=== PATIENT | female | born 1960 | race Caucasian/White ===

== ENCOUNTER 2024-01-14 19:28 | Inpatient (IN) | payer SELFPAY ==
[2024-01-14] VITALS (8 sets, daily range): BP systolic 94–123; BP diastolic 52–92
[2024-01-14 14:41] LABS: % Basophils 0.6 % (0-2); % Immature Granulocytes 0.3 % (0-0.5); % Lymphocytes 16.3 % (20.5-51.1); % Monocytes 8.8 % (1.7-9.3); Absolute Eosinophils 0.1 10^3/uL (0-0.7); Absolute Lymphocytes 1.2 10^3/uL (1.2-3.4); Absolute Monocytes 0.6 10^3/uL (0.1-0.6); Absolute Neutrophils 5.2 10^3/uL (1.4-6.5); Hematocrit 43.1 % (37.0-47.0); Hemoglobin 14.6 g/dL (12.0-16.0); Mean Corp Hgb Conc. 33.9 g/dL (33.0-37.0); Mean Corpuscular Volume 94.5 fL (81.0-99.0); Mean Platelet Volume 8.8 fL (7.4-10.4); Nucleated Red Blood Cells % 0 %; Platelet Count 279 10^3/uL (130-400); Red Blood Cell Count 4.56 10^6/uL (4.20-5.40); Red Cell Dist. Width 13.9 % (11.5-14.5); White Blood Cell Count 7.1 10^3/uL (4.8-10.8)
[2024-01-14 14:53] LABS: ALT (SGPT) 20 U/L (0-35); AST (SGOT) 28 U/L (14-36); Albumin 4.3 g/dl (3.5-5.0); Alkaline Phosphatase 72 U/L (38-126); Blood Urea Nitrogen 16 mg/dl (7-17); Calcium 9.4 mg/dl (8.4-10.2); Carbon Dioxide 30 mmol/L (22-30); Chloride 102 mmol/L (98-107); Glucose 160 mg/dl (70-99); Lipase 55 U/L (23-300); Potassium 3.8 mmol/L (3.5-5.1); Sodium 136 mmol/L (135-145); Total Bilirubin 0.6 mg/dl (0.2-1.3); Total Protein 7.1 g/dl (6.3-8.2); eGFR > 60.00
[2024-01-14 15:03] LABS: Troponin I 0.194 ng/ml
--- NOTE | 2024-01-14 16:00 | ED.GENMED ---
History of Present Illness
<Tal Garay DO - Last Filed: 01/14/24 16:07>
General
Chief Complaint: Abdominal Pain
Time Seen by Provider: 01/14/24 15:26
<SUNITA Garcia - Last Filed: 01/14/24 17:31>
General
Source: patient
Exam Limitations: none
Nursing documentation reviewed up to this point in time: agreed with
Travel History
Have you had any contact with someone who has COVID-19?: No
Do you have any symptoms of coronavirus? Fever > 100 degrees, chills, cough, shortness of breath, sore throat, loss of taste or smell, muscle aches, or headache?: No
History of Present Illness
History of Present Illness:
Patient is a 63-year-old female who presents to the ER for evaluation of chest pain. Patient reports on Friday afternoon, 2 days ago she had pain in her chest and in her back, bilateral shoulder blade region. She was sitting at that time. She is
not exactly sure how long it lasted. Yesterday she had intermittent discomfort and last night around 7:30 PM while sitting at a desk she passed out. She does not feel herself. She currently denies any chest pain or shortness of breath. She never
had any associated symptoms. She went to urgent care was sent here. She is under a lot of stress. She is from [place] and has been flying back and forth because of illness of father.
She has no cardiac history she does not smoke. She does have history of breast cancer with bilateral mastectomy/chemo. She has not been on medication for 1 year. He was taken off medication because of a low ejection fraction on echocardiogram but
reports that has since been repeated and is normal. All care in [place].
Review of Systems
<SUNITA Garcia - Last Filed: 01/14/24 17:31>
Review of Systems
Allergies reviewed?: Yes
All Other Systems: ROS reviewed and negative except as documented in HPI and ROS
Constitutional: Reports no symptoms; Denies fever, fatigue or chills
Respiratory: Reports no symptoms; Denies cough or trouble breathing
Cardiac: Reports chest pain and syncope; Denies diaphoresis or palpitations
ABD/GI: Reports no symptoms
: Reports no symptoms
Skin: Reports no symptoms
Neurological: Reports no symptoms
Hematologic/Lymphatic: Reports no symptoms
Psychiatric: Reports no symptoms
Phy Exam
<SPENCER GarciaNP - Last Filed: 01/14/24 17:31>
General Physical Exam
General Presentation: no apparent distress
General age: appears stated age
General Skin: warm and dry
General Habitus: normal
General Mental: alert
Cardiovascular Exam
Cardiovascular Exam: regular rate/rhythm, no murmur and normal peripheral pulses
Pulmonary Exam
Pulmonary Exam: lungs clear and no respiratory distress
Neurological Exam
Neurological Exam: alert and oriented x3
Musculoskeletal Exam
Musculoskeletal Exam: full ROM
Skin Exam
Skin Exam: normal color and warm/dry
Psychiatric Exam
Psychiatric Exam: normal mood/affect
Course
<Tal Garay DO - Last Filed: 01/14/24 16:07>
Orders/Labs/Results
Orders:
Orders
01/14/24 14:18
EKG [Electrocardiogram (*1)] Urgent
Reason for Study: Chest Pain
01/14/24 14:19
EKG- Treatment ONCE
01/14/24 14:25
Complete Blood Count/With Diff Urgent
Comprehensive Metabolic Panel Urgent
Lipase Urgent
Troponin I Urgent
01/14/24 15:56
Aspirin Chewable [Low Strength Aspirin] 324 mg PO NOW STA
Heparin 4,000 units IV NOW STA
01/14/24 15:[address] Non Medication Order As Directed
Physician Order: PTT 6 hours after initial start of Heparin infusion
Above order entered?: Yes
01/14/24 16:00
PTT Urgent
Comment: Obtain baseline before beginning heparin infusion if not already collected
Heparin 32882 Units/250 ml 25,000 units in 250 ml IV PER PROTOCOL
Weight to be used for heparin protocol in kilograms (kg):: 68.4
Protocol:: Cardiac Tx/Acute Coronary
PTT Goal Range to be used:: PTT 73 to 111 seconds
Order type:: Initial
INITIAL Infusion Dose (UNITS/KG/hr) & then follow protocol:: 15 units/kg/hr
Infusion Dose in UNITS/hr & then follow protocol (UNITS/hr):: 1,050
INFUSION RATE in mL/hr & then follow protocol (mL/hr):: 10.5
PTT less than or equal to 64 seconds:: Increase rate by 200 units/hr (+ 2 mL/hr)
PTT 64.1 to 72.9 seconds:: Increase rate by 100 units/hr (+ 1 mL/hr)
PTT 73 to 111 seconds:: Target Range. No change in rate.
PTT 111.1 to 130.9 seconds:: Decrease rate by 100 units/hr (- 1 mL/hr)
PTT 131 to 199.9 seconds:: HOLD for 1 hr. Then decrease rate by 200 units/hr (- 2 mL/hr)
PTT greater than or equal to 200 seconds:: HOLD for 2 hrs & Notify Provider. Then decrease by 200 units/hr (-
2 mL/hr)
Lab follow-up:: Each change, PTT q6h until 2 consecutive are therapeutic. Then PTT
daily.
01/14/24 16:29
Chest [CR Chest - 2 Views ] Urgent
Comment:
Reason For Exam: cp
01/14/24 17:22
Troponin I Urgent
01/14/24 17:30
Troponin I Q6H
01/14/24 18:00
Atorvastatin [Lipitor] 80 mg PO QPM
Metoprolol [Lopressor] 25 mg PO Q6
01/14/24 22:19
PTT Routine
01/14/24 23:30
Troponin I Q6H
01/15/24 06:00
Echo 2D MMode Color/Doppler IN AM
Reason for Study: chest pain, elevated Troponin, h/o NICM from chemo
Cardiology Consult: Akanksha Corral
Electrocardiogram (*1) IN AM
Reason for Study: Chest Pain
Cardiology Consult: Akanksha Corral
Cardiovascular Evaluation IN AM
Abnormal Lab Results
01/14/24
14:25
MCH 32.0 H pg
(27.0-31.0)
Lymphocytes % 16.3 L %
(20.5-51.1)
Glucose 160 H mg/dl
(70-99)
Troponin I 0.194 H* ng/ml
01/14/24 14:25
01/14/24 14:25
Vital Signs
Initial and Last Documented VS:
Initial Vital Signs
Temp Pulse Resp BP Pulse Ox
98.5 F 86 18 110/73 98
01/14/24 14:15 01/14/24 14:15 01/14/24 14:15 01/14/24 14:15 01/14/24 14:15
Last Documented Vital Signs
Temp Pulse Resp BP Pulse Ox
98.5 F 78 16 115/92 99
01/14/24 14:15 01/14/24 17:15 01/14/24 17:15 01/14/24 17:03 01/14/24 17:15
<SUNITA Garcia - Last Filed: 01/14/24 17:31>
Orders/Labs/Results
Orders:
Orders
01/14/24 14:18
EKG [Electrocardiogram (*1)] Urgent
Reason for Study: Chest Pain
01/14/24 14:19
EKG- Treatment ONCE
01/14/24 14:25
Complete Blood Count/With Diff Urgent
Comprehensive Metabolic Panel Urgent
Lipase Urgent
Troponin I Urgent
01/14/24 15:56
Aspirin Chewable [Low Strength Aspirin] 324 mg PO NOW STA
Heparin 4,000 units IV NOW STA
01/14/24 15:[address] Non Medication Order As Directed
Physician Order: PTT 6 hours after initial start of Heparin infusion
Above order entered?: Yes
01/14/24 16:00
PTT Urgent
Comment: Obtain baseline before beginning heparin infusion if not already collected
Heparin 34195 Units/250 ml 25,000 units in 250 ml IV PER PROTOCOL
Weight to be used for heparin protocol in kilograms (kg):: 68.4
Protocol:: Cardiac Tx/Acute Coronary
PTT Goal Range to be used:: PTT 73 to 111 seconds
Order type:: Initial
INITIAL Infusion Dose (UNITS/KG/hr) & then follow protocol:: 15 units/kg/hr
Infusion Dose in UNITS/hr & then follow protocol (UNITS/hr):: 1,050
INFUSION RATE in mL/hr & then follow protocol (mL/hr):: 10.5
PTT less than or equal to 64 seconds:: Increase rate by 200 units/hr (+ 2 mL/hr)
PTT 64.1 to 72.9 seconds:: Increase rate by 100 units/hr (+ 1 mL/hr)
PTT 73 to 111 seconds:: Target Range. No change in rate.
PTT 111.1 to 130.9 seconds:: Decrease rate by 100 units/hr (- 1 mL/hr)
PTT 131 to 199.9 seconds:: HOLD for 1 hr. Then decrease rate by 200 units/hr (- 2 mL/hr)
PTT greater than or equal to 200 seconds:: HOLD for 2 hrs & Notify Provider. Then decrease by 200 units/hr (-
2 mL/hr)
Lab follow-up:: Each change, PTT q6h until 2 consecutive are therapeutic. Then PTT
daily.
01/14/24 16:29
Chest [CR Chest - 2 Views ] Urgent
Comment:
Reason For Exam: cp
01/14/24 17:22
Troponin I Urgent
01/14/24 17:30
Troponin I Q6H
01/14/24 18:00
Atorvastatin [Lipitor] 80 mg PO QPM
Metoprolol [Lopressor] 25 mg PO Q6
01/14/24 22:19
PTT Routine
01/14/24 23:30
Troponin I Q6H
01/15/24 06:00
Echo 2D MMode Color/Doppler IN AM
Reason for Study: chest pain, elevated Troponin, h/o NICM from chemo
Cardiology Consult: Akanksha Corral
Electrocardiogram (*1) IN AM
Reason for Study: Chest Pain
Cardiology Consult: Akanksha Corral
Cardiovascular Evaluation IN AM
Abnormal Lab Results
01/14/24
14:25
MCH 32.0 H pg
(27.0-31.0)
Lymphocytes % 16.3 L %
(20.5-51.1)
Glucose 160 H mg/dl
(70-99)
Troponin I 0.194 H* ng/ml
01/14/24 14:25
01/14/24 14:25
Vital Signs
Initial and Last Documented VS:
Initial Vital Signs
Temp Pulse Resp BP Pulse Ox
98.5 F 86 18 110/73 98
01/14/24 14:15 01/14/24 14:15 01/14/24 14:15 01/14/24 14:15 01/14/24 14:15
Last Documented Vital Signs
Temp Pulse Resp BP Pulse Ox
98.5 F 78 16 115/92 99
01/14/24 14:15 01/14/24 17:15 01/14/24 17:15 01/14/24 17:03 01/14/24 17:15
<SUNITA Garcia - Last Filed: 01/14/24 17:31>
MDM/Problems Addressed
Differential Diagnosis Includes:
not limited to: CAD/USA
MDM/Problems Addressed:
Patient as document is a 63-year-old female history of breast cancer presented with intermittent chest pain. Pain started 2 days ago anterior chest and pain between both shoulder blades. She did have a syncopal episode yesterday. Patient
presented awake alert no acute distress asymptomatic. She has no documented history cardiac disease. Her EKG is abnormal and her troponin is elevated at 0.194. Patient was given 4 baby aspirin here in the ER and started on heparin. Case
discussed with ED physician who evaluated patient. Case discussed with cardiology Dr. Yoon who will evaluate patient.
Patient stable no acute distress no complaint of shortness of breath. As documented she is under a lot of stress with her ill father. She does live in [place] and has been flying back and forth recently denies any lower extremity swelling or prior
history of DVT PE, nontachycardic nontachypneic.
1730: Patient seen by cardiology who recommended admission to hospitalist service will plan for echo tomorrow morning.
<SUNITA Garcia - Last Filed: 01/14/24 17:31>
*Radiology
Radiology exam reviewed: preliminary read by ED provider
*Pulse Oximetry
Patient hypoxic: no
*EKG
Interpretation: abnormal
Comparison EKG: no comparison EKG present
Heart Rate: 79
Rate: normal
Rhythm: sinus
Ischemia: T-wave inversion
*Critical Care Note
Total Time (30-74mins, 75-104mins- exclusive of procedures): Not Applicable
<SUNITA Garcia - Last Filed: 01/14/24 17:31>
Patient Management
Discussion with other providers: S Iron Worker (Cardiology Dr. Osorio)
ED Attending Note
<Tal Garay DO - Last Filed: 01/14/24 16:07>
ED Attending Note
Patient seen and examined by attending physician: Yes
I performed the substantive portion of visit, reviewed & personally made and approve the management plan that is documented in note by myself or KAREN.: Yes
I performed a history and physical exam of patient and discussed management with resident, I reviewed resident's note and agree with documented findings and plan of care.: Yes
ED Attending Note:
I evaluated the patient at bedside. She is comfortable. Denies any chest pain. Earlier in the week she had intrascapular stabbing pain and chest pain but no pain today. She has an abnormal EKG with lateral abnormality and troponin of 0.194.
Will plan heparin/aspirin. Will hold off on nitroglycerin as she has no pain.
<SUNITA Garcia - Last Filed: 01/14/24 17:31>
-
Portions of this chart may have been created with voice recognition software.� Occasional wrong word or��sound alike� substitutions may have occurred due to the inherent limitations of voice recognition software.
Discharge Plan
Departure
Patient Disposition: Admit
Date of Disposition: 01/14/24
Time of Disposition: 17:27
Admit to doctor: hospitalist
Presentation/result/management discussed w/ accepting MD/DO: Hospitalist
Patient with high blood pressure during this ER visit?: No
Condition: Fair
Covid-19: Not Applicable
Discharge Problem:
Chest pain
Prescriptions:
No Action
anastrozole 1 mg Tablet
1 mg PO DAILY
Patient Comments:
no pharamcy or ecw records
alprazolam [Xanax] 0.5 mg Tablet
0.5 mg PO DAILYPRN PRN (Reason: anixety)
Patient Comments:
no pdmp records
Referrals:
UNKNOWN - PT DOES,NOT KNOW [Family Provider] -
Interventions
Interventions:
*Risk Screen - Suicide Last Done: 01/14/24 14:15
*General Assessment Last Done: 01/14/24 14:15
*Neglect/Abuse Screening Last Done: 01/14/24 14:15
ED- Fall Risk Assessment Last Done: 01/14/24 15:39
*ED COVID-19 Vaccine History Last Done: 01/14/24 14:15
LU-Eembqn-Xspyuoxskx Assessment Last Done: 01/14/24 15:38
Discharge Date and Time
Print Language: DUTCH
[2024-01-14] MEDS: LOW STRENGTH ASPIRIN 324 MG PO (16:02)
[2024-01-14] MEDS: HEPARIN 4000 UNITS IV (16:18)
[2024-01-14] MEDS: HEPARIN 25000 UNITS/250 ML IV (16:19)
--- NOTE | 2024-01-14 16:21 | CON.CAR ---
Addendum entered and electronically signed by Akanksha Corral MD 01/14/24 17:30:
I saw and examined the patient.
The Pharmacy Care Coordinator's note was reviewed and I agree with the note.
Comment: Briefly, Ms Gibbs is a 63-year-old female with past medical history of breast cancer status post bilateral mastectomy as well as chemo and radiation therapy including Adriamycin with transient nonischemic cardiomyopathy at the end of her
treatment in 2021 with recovered LVEF per patient with records in [place] who presents after 2 days of episodic chest and abdominal discomfort, somewhat vague in nature. The first episode was on Friday when the symptoms lasted about an hour and
then she had a recurrent episode after a emotional conversation with her brother in regards to her father who may need hospice care yesterday morning, again lasting for about an hour and then resolving without any interventions. She had an episode
yesterday evening while she was working at her desk with prodromal symptoms of nausea, cold sweats followed by episode of LOC which was transient lasting less than a minute. Though her symptoms have not reoccurred since then, specifically with no
recurrent chest discomfort or abdominal pain since yesterday morning given these episodes over the last couple of days she was prompted by her to come to the emergency department to have an evaluation. No history of hypertension,
hyperlipidemia. Family history of coronary artery disease in her dad in his late 60s needing a stent and subsequently a defibrillator for unclear reasons. No history of smoking tobacco.
Vital signs and lab work reviewed. ECG with sinus rhythm, nonspecific ST-T wave changes. On exam patient is well-appearing, in no acute distress, alert and oriented x 3, regular rate, normal S1 and S2, no murmurs, rubs or gallops, abdomen is soft,
nontender, nondistended with active bowel sounds, lungs are clear to auscultation bilaterally. Warm extremities without significant edema
Recommendations:
1. Differential for mild troponin elevation includes acute coronary syndrome versus pulmonary embolus given prior history of breast cancer and recent flight from [place] versus Takotsubo cardiomyopathy which would be a diagnosis of exclusion.
2. Patient is currently chest pain-free and after discussion, she is certainly not interested in an urgent heart catheterization or invasive procedures for now. We discussed trending troponins and checking an echocardiogram with low threshold for
a heart catheterization given she is a female with no other clear explanation for her troponin elevation.
3. Low suspicion for a PE given no lower extremity edema, no shortness of breath, no hypoxia, no tachycardia therefore agree with holding off on a PE evaluation for now.
4. For now we will treat for presumed ACS with daily baby aspirin, high intensity statin, low-dose beta-blane as well as IV heparin drip until we get further data by trending troponins and checking an echocardiogram
5. Monitor on telemetry overnight.
5. I encouraged the patient to let us know if any of her symptoms are recurrent.
Akanksha Corral MD, [facility], [facility]
Original Note:
Consultation
Consultation Request
Date/Time Consultation Requested: 01/14/24
Date/Time Consultation Performed: 01/14/24
Requesting Provider: Suim DORSEY
Performing Provider: Janiya Dugan PA-C for Dr. Corral
Reason for Consultation: CP
Medical History
-
Chief Complaint: CP
History of Present Illness:
Patient came to [facility] today with chest pain episodes on Friday and Friday and cardiology is consulted for elevated Troponin. Patient resides in [place] and is visiting her father who is very ill with glioblastoma. She has a PMH of breast cancer s/p
B/L mastectomy and chemotherapy including Adriamycin, on anastrozole. She had NICM towards the end of her treatment in 2021 and was recommended CM meds, but EF improved on a follow up echo and meds were never restarted. Echo within the last year
showed a normal EF. Patient flew into [place] on Friday and in the evening she had an episode of chest pain, it was pain at rest and associated with emotional distress. The pain lasted an hour and resolved without specific intervention. Pain was between
her shoulders and to her left ACW. She had never had a pain like that before. She had another episode of pain that was identical during an emotional conversation with her brother yesterday morning. No recurrence of pain since Friday.
Patient then had an episode of abdominal pain and had an episode of syncope while seated and participating in a video conference call with her about a work issue. She awoke and felt like she had urinary incontinence, but no vomiting or fecal
incontinence. She has passed in the past as well, once with an IUD insertion and another time after colonoscopy. She came to [facility] today to get checked out, no new issues today. No leg pain or swelling. No SOB, tachypnea or tachycardia. No h/o DVT/PE
PMH:
Breast cancer
lumpectomy and radiation with resulting pneumonitis in 2009
recurrence in the other breast with 3 masses and 2 different types of cancer, treated with 'upper mattaponi' chemotherapy which includes Adriamycin, EF dropped and then recovered when therapy stopped, never treated with CM meds, 2021
Improved NICM felt to be secondary to chemotherapy with subsequent recovery in EF 2021
Anxiety
Elevated blood glucose
h/o COVID 11/2023
Past Medical History
Past Medical History: Other (in HPI)
Past Surgical History: Gynecological (B/L mastectomy for breast cancer)
Social History
Tobacco: Former Smoker (smoked age [age])
Alcohol: Occasional (1-2 drinks three times a week)
Drug: None
Personal:
Living: With Family
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
Family History
Family History: Other (father with MIs starting in his late 60s and now with glioblastoma, mother with OCD)
Allergies / Home Medications
Allergy/AdvReac Type Severity Reaction Status Date / Time
codeine Allergy Nausea Verified 01/14/24 14:14
�Medication �Instructions �Recorded �Confirmed �Type
alprazolam 0.5 mg tablet (Xanax) 0.5 mg PO DAILYPRN PRN anixety 01/14/24 01/14/24 History
anastrozole 1 mg tablet 1 mg PO DAILY 01/14/24 01/14/24 History
Review of Systems
-
History Source: Patient
All other systems: Negative unless noted
Physical Exam
Vital Signs
Temp Pulse Resp BP Pulse Ox
98.5 F 87 15 110/73 98
01/14/24 14:15 01/14/24 15:38 01/14/24 15:38 01/14/24 14:15 01/14/24 15:38
GEN: NAD. AAOx3
HEENT: EOMI, MMM
LUNGS: CTA B/L, no wheezes or rales
CV: Reg, S1/S2, no murmur
ABD: soft, BS+, NT, ND
EXT: No clubbing, cyanosis, lesions or edema B/L
NEURO: Gross non-focal
SKIN: Warm, dry and pink. No rash
Lab Results
01/14/24 14:25
01/14/24 14:25
Troponin I 0.194 ng/ml H* 01/14/24 14:25
Impression / Plan
-
PCP; In [place]
Primary Vice President Sales And Marketing: None
Assessment:
Presentation with CP
Elevated troponin
Breast cancer
lumpectomy and radiation with resulting pneumonitis in 2009
recurrence in the other breast with 3 masses and 2 different types of cancer, treated with 'upper mattaponi' chemotherapy which includes Adriamycin, EF dropped and then recovered when therapy stopped, never treated with meds, 2021
Improved NICM felt to be secondary to chemotherapy with subsequent recovery in EF 2021
Anxiety
Elevated blood glucose
h/o COVID 11/2023
Plan:
-Patient came to [facility] today with chest pain episodes on Friday and Friday and cardiology is consulted for elevated Troponin. Patient resides in [place] and is visiting her father who is very ill with glioblastoma. She has a PMH of breast cancer s/p
B/L mastectomy and chemotherapy including Adriamycin, on anastrozole. She had NICM towards the end of her treatment in 2021 and was recommended CM meds, but EF improved on a follow up echo and meds were never restarted. Echo within the last year
showed a normal EF. Patient flew into [place] on Friday and in the evening she had an episode of chest pain, it was pain at rest and associated with emotional distress. The pain lasted an hour and resolved without specific intervention. Pain was between
her shoulders and to her left ACW. She had never had a pain like that before. She had another episode of pain that was identical during an emotional conversation with her brother yesterday morning. No recurrence of pain since Friday.
Patient then had an episode of abdominal pain and had an episode of syncope while seated and participating in a video conference call with her about a work issue. She awoke and felt like she had urinary incontinence, but no vomiting or fecal
incontinence. She has passed in the past as well, once with an IUD insertion and another time after colonoscopy. She came to [facility] today to get checked out, no new issues today. No leg pain or swelling. No SOB, tachypnea or tachycardia. No h/o DVT/PE
-Initial Troponin is 0.194. ECG reviewed by me with anterolateral T wave changes, but no ST elevation.
-Patient with chest pain Friday and Friday, but no chest pain in 24 hours. Talked with patient about options of Heparin gtt overnight and then echo +/- cath in AM vs more urgent cath if she has recurrent pain. Patient is agreeable to admission with
Heparin gtt overnight.
-Check echo in AM
-Cont Heparin gtt
-ASA 324 mg given in ER, cont 81 mg daily starting tomorrow
-ECG in AM
-Lopressor 25 mg PO q 6 hours
-Check CVE and start atorvastatin 80 mg daily
Data Reviewed
-
EKG: Tracing Personally Visualized and interpreted
Labs: Labs Reviewed by me
Old Records: Requested
[2024-01-14 16:25] LABS: APTT 27.7 Sec (23.4-35.0)
--- NOTE | 2024-01-14 18:02 | W.PN.UPDATE ---
Update Note
Progress Note Update
This note serves as an addendum to the H&P done by Vanessa on 01/14/2024.
I saw and examined the patient.
The DOWNSTAIRS MAID or PA's note was reviewed and I agree with the note.
Comment:
Patient is 63 years female with history of breast cancer, transient ischemic cardiomyopathy, came into the hospital with chest pain and abdominal discomfort. She started having symptoms since Friday and has come on and off some of which are not
exertional in nature and some associated with nausea and generalized malaise. She had episode of transient loss of consciousness as well. Patient currently chest pain-free. In the ED,. On 0, EKG normal sinus rhythm at [address]-T
changes abnormalities. Cardiology consulted. She was referred to hospitalist service for evaluation.
Physical exam:
General: Acutely ill
HEENT: Normocephalic, Atraumatic and Moist Mucous Membranes
Respiratory: Clear to Auscultation; Negative Wheezes, Rales or Rhonchi
Cardiac: Regular Rhythm and S1/S2
GI: Soft, Nontender and Nondistended
Musculoskeletal: No Clubbing, No Cyanosis and No Edema
Neuro: Awake, Alert and Oriented
Psych: Anxious
A/P:
Chest pain and elevated troponin--> heparin drip, aspirin beta-blockers and statin, plan for echocardiogram, cardiology consult. Cardiac catheterization if worsened symptoms or cardiac enzymes significantly elevated on trend. Would check D-Dimer
and if elevated CTA. Will give further recommendations based on clinical course.
[2024-01-14 18:17] LABS: Troponin I 0.165 ng/ml
--- NOTE | 2024-01-14 18:24 | HPS.HSE ---
Family Physician
-
Family Physician: NOT KNOW UNKNOWN - PT DOES
Chief Complaint
-
Chest Pain
History of Present Illness
Patient is a 63 y/o female past medical history of breast cancer, and nonischemic cardiomyopathy with recovered EF who presents with episodic chest pain. Patient reports she had an episode of chest pain on Friday evening. She notes pain occurred
at rest described between her shoulders and left anterior chest wall. Yesterday morning she had an episode of identical chest pain. Both o f the episodes of chest pain were associated with emotional distress as her father is quite ill with
glioblastoma. Patient then had an episode of epigastric abdominal yesterday afternoon which was associated with a syncopal episode while seated during a call with her while preparing for a client conference call. After the syncopal episode
she reports a chest discomfort that lasted the rest of the night. This morning patient felt lightheaded which prompted her to come to the emergency department for evaluation. Patient denies any chest or abdominal pain at the present time.
Medical History
Past Medical History
Past Medical History: Reports Other
Additional Past Medical History:
Breast Cancer
Transient Nonischemic Cardiomyopathy
Past Surgical History: Reports Other
Additional Past Surgical History:
Bilateral Mastectomy
Hysterectomy
Appendectomy
Social History
Tobacco: Non-smoker
Alcohol: Occasional (Few glasses of wine per week)
Family History
Family History: Other (Father: CAD with stent in 60s)
Allergies / Home Medications
Allergies reflects when Allergies were last updated in [employer] [employer].
Home Medications with original date entered in [employer] [employer]
Allergy/Medication List:
Allergies
Allergy/AdvReac Type Severity Reaction Status Date / Time
codeine Allergy Nausea Verified 01/14/24 14:14
Home Medications
alprazolam 0.5 mg tablet (Xanax) 0.5 mg PO DAILYPRN PRN anixety 01/14/24
anastrozole 1 mg tablet 1 mg PO DAILY 01/14/24
Review of Systems
-
A 12 point ROS was completed and negative except as noted: Yes
Constitutional: Denies Fever or Chills
Respiratory: Denies Cough or Trouble Breathing
Cardiac: Reports See HPI
Physical Exam
Vital Signs
Vital Signs
Temp Pulse Resp BP Pulse Ox
98.5 F 78 16 115/92 99
01/14/24 14:15 01/14/24 17:15 01/14/24 17:15 01/14/24 17:03 01/14/24 17:15
Physical Exam
General: Comfortable and Conversant
HEENT: Anicteric and Moist mucous membranes
Respiratory: Clear and Non Labored Respirations
Cardiac: S1/S2 and Regular Rhythm
GI: Soft and Non Tender
Rectal: Deferred by Provider
Musculoskeletal: No Clubbing, No Cyanosis and No Edema
Skin: Warm and Dry
Neuro: Awake, Alert, Oriented and Nonfocal/grossly intact
Psych: Calm
Laboratory Results
-
01/14/24 14:25
01/14/24 14:25
Laboratory Results
APTT 27.7 Sec (23.4-35.0) 01/14/24 16:00
Total Bilirubin 0.6 mg/dl (0.2-1.3) 01/14/24 14:25
AST 28 U/L (14-36) 01/14/24 14:25
ALT 20 U/L (0-35) 01/14/24 14:25
Alkaline Phosphatase 72 U/L (38-126) 01/14/24 14:25
Troponin I 0.165 ng/ml H* 01/14/24 17:44
Lipase 55 U/L (23-300) 01/14/24 14:25
Data Reviewed
-
Lab Data: Labs Reviewed by me
Impression/Plan
-
Chest Pain with Mildly Elevated Troponin, possibly acute coronary syndrome vs pulmonary embolism
-Consult Cardiology
-Check D-Dimer, if elevated check Chest CT for PE
-Continue to trend troponin
-Continue heparin drip
-Start low dose aspirin, high intensity statin with atorvastatin, and low-dose beta blane with Lopressor - As outlined by Cardiology
-Check Echo
Hx Breast CA s/p Bilateral Mastectomy, Chemotherapy and Radiation
-Continue Anastrozole
DVT proph: Heparin Drip
Code Status: Full Code
[2024-01-14] MEDS: LIPITOR 80 MG PO (20:11)
[2024-01-14] MEDS: LOPRESSOR 25 MG PO (20:11)
[2024-01-14 20:22] LABS: D-Dimer 0.47 ug/mlFEU (0.00-0.50)
[2024-01-14 22:52] LABS: APTT 66.4 Sec (23.4-35.0)
[2024-01-15] VITALS (19 sets, daily range): BP systolic 82–132; BP diastolic 56–87
[2024-01-15] MEDS: LOPRESSOR 25 MG PO (00:30)
[2024-01-15 05:56] LABS: Hematocrit 40.5 % (37.0-47.0); Hemoglobin 13.8 g/dL (12.0-16.0); Mean Corp Hgb Conc. 34.1 g/dL (33.0-37.0); Mean Corpuscular Hgb 31.9 pg (27.0-31.0); Mean Corpuscular Volume 93.8 fL (81.0-99.0); Mean Platelet Volume 9.1 fL (7.4-10.4); Platelet Count 224 10^3/uL (130-400); Red Blood Cell Count 4.32 10^6/uL (4.20-5.40); Red Cell Dist. Width 13.9 % (11.5-14.5); White Blood Cell Count 3.7 10^3/uL (4.8-10.8)
[2024-01-15] MEDS: LOPRESSOR PO (06:02)
[2024-01-15 06:09] LABS: APTT 94.9 Sec (23.4-35.0)
[2024-01-15 06:36] LABS: Blood Urea Nitrogen 13 mg/dl (7-17); Calcium 9.1 mg/dl (8.4-10.2); Carbon Dioxide 26 mmol/L (22-30); Chloride 103 mmol/L (98-107); Glucose 100 mg/dl (70-99); HDL Cholesterol 62 mg/dl; LDL Cholesterol, Calculated 95 mg/dl; Potassium 4.3 mmol/L (3.5-5.1); Sodium 136 mmol/L (135-145); Total Cholesterol 177 mg/dl (50-199); Triglyceride 103 mg/dl (10-149); Very Low Density Lipoprotein 20 mg/dl (0-30); eGFR > 60.00
[2024-01-15 07:07] LABS: TSH Reflex To Free T4 0.99 uIU/ml (0.47-4.68)
[2024-01-15] MEDS: ARIMIDEX 1 MG PO (07:45)
[2024-01-15] MEDS: ASPIR LOW (ENTERIC COATED) 81 MG PO (07:45)
--- NOTE | 2024-01-15 10:40 | W.PN.CARDCBS ---
Addendum entered and electronically signed by Sanam Clark DO 01/15/24 13:20:
I saw and examined the patient.
The Loop Puller's note was reviewed and I agree with the note.
Comment: Seen and examined with cardiac PA in the ED bed 19. Patient's sister present in room and present over the phone. Nancy visiting from [place] and under increased stress with recurrence of breast cancer as well as visiting her
father who is ill with glioblastoma placed on hospice who presented with chest pain and elevated troponin which peaked at 0.194, abnormal EKG and echocardiogram noting apical wall motion abnormality. Currently chest pain-free
GEN: NAD. AAOx3, emotional
HEENT: mmm
LUNGS: CTA B/L, no wheezes or rales
CV: Reg, S1/S2, no murmur
ABD: soft, BS+, NT, ND
EXT: No edema. Normal Jarvis's, right wrist
NEURO: Gross non-focal
Plan:
Plan for left heart catheterization today. Details of procedure and indications discussed with patient, all questions answered. No contraindications and she is agreeable to proceed
Further recommendations pending left heart cath findings
Original Note:
Today's Communication / Plan
-
Cath today
Talked with patient, sister and in room
Impression / Plan
-
PCP; In [place]
Primary Crane Service Technician: None
Assessment:
Presentation with CP
Elevated troponin
Breast cancer
lumpectomy and radiation with resulting pneumonitis in 2009
recurrence in the other breast with 3 masses and 2 different types of cancer, treated with '[place]' chemotherapy which includes Adriamycin, EF dropped and then recovered when therapy stopped, never treated with CM meds, 2021
Improved NICM felt to be secondary to chemotherapy with subsequent recovery in EF 2021
Anxiety
Elevated blood glucose
h/o COVID 11/2023
Echo 01/15/24: EF 45-50%, hypokinesis of the apical segments with preserved function of the basal and mid segments, Stage I diastolic dysfunction, mild to moderate MR
Plan:
-Initial Troponin was 0.19 and trended down therafter. ECG without ST elevation from time of admission. Last episode of chest pain was Friday, no recurrence of chest pain this admission. Heparin gtt started 01/14/24. Echo 01/15/24 AM showed EF
45-50% and hypokinesis of the apical segments. Talked with patient, sister and by phone about echo findings about with Troponin etc. Reviewed plans from 01/14/24 for cardiac cath and patient is agreeable.
-Talked again about the possibility of Takotsubo CM and that this would be a diagnosis of exclusion pending results of cath which patient and family seemed to understand
-ASA 324 mg given in ER, cont 81 mg daily
-Lopressor 25 mg PO q 6 hours ordered 01/14/24 and dose held 01/15/24 AM due to hypotension. Will change to Toprol XL 12.5 mg daily given echo
-LDL 95 and started atorvastatin 80 mg daily 01/14/24. Await cath results. Patient prefers to be on minimal meds.
-Check HgbA1c
HPI: Patient came to [facility] today with chest pain episodes on Friday and Friday and cardiology is consulted for elevated Troponin. Patient resides in [place] and is visiting her father who is very ill with glioblastoma. She has a PMH of breast cancer
s/p B/L mastectomy and chemotherapy including Adriamycin, on anastrozole. She had NICM towards the end of her treatment in 2021 and was recommended CM meds, but EF improved on a follow up echo and meds were never restarted. Echo within the last year
showed a normal EF. Patient flew into [place] on Friday and in the evening she had an episode of chest pain, it was pain at rest and associated with emotional distress. The pain lasted an hour and resolved without specific intervention. Pain was between
her shoulders and to her left ACW. She had never had a pain like that before. She had another episode of pain that was identical during an emotional conversation with her brother yesterday morning. No recurrence of pain since Melinda morning.
Patient then had an episode of abdominal pain and had an episode of syncope while seated and participating in a video conference call with her about a work issue. She awoke and felt like she had urinary incontinence, but no vomiting or fecal
incontinence. She has passed in the past as well, once with an IUD insertion and another time after colonoscopy. She came to [facility] today to get checked out, no new issues today. No leg pain or swelling. No SOB, tachypnea or tachycardia. No h/o DVT/PE
Progress Note - Crane Service Technician
Subjective
Date of Service: January 15, 2024
No chest pain overnight
Objective
Labs:
01/15/24 05:45
01/15/24 05:45
Labs
Hgb 13.8 g/dL (12.0-16.0) 01/15/24 05:45
Hct 40.5 % (37.0-47.0) 01/15/24 05:45
Plt Count 224 10^3/uL (130-400) 01/15/24 05:45
APTT 94.9 Sec (23.4-35.0) H 01/15/24 05:45
Sodium 136 mmol/L (135-145) 01/15/24 05:45
Potassium 4.3 mmol/L (3.5-5.1) 01/15/24 05:45
BUN 13 mg/dl (7-17) 01/15/24 05:45
Creatinine 0.7 mg/dL (0.6-1.0) 01/15/24 05:45
Glucose 100 mg/dl (70-99) H 01/15/24 05:45
Troponins
01/14/24 01/14/24 01/14/24
14:25 17:22 17:44
Troponin I 0.194 H* Cancelled 0.165 H*
01/14/24
22:32
Troponin I 0.130 H*
Vital Signs and I&O:
Vital Signs
Temp Pulse Resp BP Pulse Ox
98.5 F 66 14 101/64 99
01/14/24 14:15 01/15/24 08:29 01/15/24 08:29 01/15/24 08:29 01/15/24 08:29
Vital Signs
Temp Pulse Resp BP Pulse Ox
98.5 F 66 14 101/64 99
01/14/24 14:15 01/15/24 08:29 01/15/24 08:29 01/15/24 08:29 01/15/24 08:29
Physical Exam
Physical Exam
GEN: NAD. AAOx3
HEENT: EOMI, MMM
LUNGS: CTA B/L, no wheezes or rales
CV: Reg, S1/S2, no murmur
ABD: soft, BS+, NT, ND
EXT: No clubbing, cyanosis, lesions or edema B/L
NEURO: Gross non-focal
SKIN: Warm, dry and pink. No rash
--- NOTE | 2024-01-15 11:30 | ITS.CL.CATH ---
Returner - Catheterization
Cardiac Catheterization
Procedure Report:
LEFT HEART CATHETERIZATION
Date of Procedure: January 15, 2024
Referring: Dr. Akanksha Corral
PROCEDURES:
1. Coronary angiography
INDICATION: Chest pain with elevated troponin and apical wall motion abnormality noted by echocardiogram. The patient traveled from [place] to visit her father who is dying from glioblastoma and being placed on hospice care
ACCESS: Right radial artery, 6 [place] sheath
HEMODYNAMICS : (mmHg)
AO (s/d) : 97/61
CORONARY FINDINGS
DOMINANCE: Left
LEFT MAIN: Normal
LEFT ANTERIOR DESCENDING: Normal
CIRCUMFLEX: Normal
RIGHT CORONARY ARTERY: Small nondominant
VENTRICULOGRAPHY: Not done
RADIATION SUMMARY: Fluoro Time (min): 1.6, Dose (mGy): 87, DAP (Gy.cm2) : 6.5
Closure Device: TR band
CONCLUSIONS
1. Nonobstructive coronary disease
RECOMMENDATIONS
1. Probable Takotsubo's cardiomyopathy given her emotional distress over her father's illness.
2. Will titrate beta-blane
3. Continue aspirin for now
4. Will make CD copies of echocardiogram and coronary angiogram. She will need to follow-up with cardiology when returning to [place]
Copy to: Dr. Akanksha Corral
--- NOTE | 2024-01-15 12:31 | CM ---
Reviewed chart. Met with Mrs. Gibbs to review discharge plans. She states she is currently staying at her parents house. She states her parents home is a two story home without any steps to enter. She states she has a full flight of steps to get
to bedroom/full bathroom. She states there is a small bathroom on the first floor. She states prior to admission she was independent with ambulation and adls. She states she currently does not have health insurance. She states she is planning on
returning home to [place] on 06/05. Medical work-up in progress. The discharge plan is to return to her parents home when medically stable.
[2024-01-15] MEDS: NSS 1000 IV (12:38)
[2024-01-15] MEDS: TYLENOL 650 MG PO (14:36)
--- NOTE | 2024-01-15 14:37 | W.PN.HOSP.TC ---
Today's Communication/Plan
-
Heparin drip, aspirin, beta-blockers, statins. Cardiac catheterization today.
Assessment / Plan
Assessment / Plan
Physical exam:
General: Well Developed, Well Nourished and No Apparent Distress
HEENT: Normocephalic, Atraumatic and Moist Mucous Membranes
Respiratory: Clear to Auscultation; Negative Wheezes, Rales or Rhonchi
Cardiac: Regular Rhythm and S1/S2
GI: Soft, Nontender and Nondistended
Musculoskeletal: No Clubbing, No Cyanosis and No Edema
Neuro: Awake, Alert and Oriented
Psych: Calm
A/P:
Chest pain elevated troponin/ NSTEMI:
-On heparin drip
-On aspirin, beta-blockers, statins.
-D-dimer normal so no need for CT of the chest.
-Patient agreed for cardiac catheterization today
-Cardiology on consult and appreciated input
History of transient cardiomyopathy/ Rule out Takotsubo:
-Plan for transthoracic echocardiogram
-Plan for cardiac cath
-Continue current medications
History of breast cancer:
-Status post chemo and radiation and mastectomy in the past
-Currently on remission and on anastrozole as outpatient
Depression anxiety:
-On Xanax as needed
-With current stressors I discussed with patient if needed stronger or different kind of medications but she wants to hold off for now. It is reasonable to reevaluate after cardiac issues were stable.
DVT prophylaxis:
Remains on heparin gtt
CODE STATUS:
Full code
Total time spent on today's encounter was 52 minutes which included time spent in counseling the patient/family regarding diagnosis and treatment plan as listed above, goals of care, and symptom management. Case was discussed with nursing staff,
specialists, and care coordinators/case management. All labs and imaging personally reviewed by me. Remainder the time spent in detailed review of previous records, lab data, imaging, and other medical provider documentation.
Anticipated Discharge: 24 - 48 hours
Subjective/Interval History
-
Date of Service: January 15, 2024
Patient seen earlier today still in the ER. Denies chest pain or shortness of breath by the time of my evaluation.
Objective Data
-
Labs:
Laboratory Results
01/15/24 01/15/24
05:45 11:30
WBC 3.7 L
Hgb 13.8
Hct 40.5
Plt Count 224
APTT 94.9 H Cancelled
Sodium 136
Potassium 4.3
Chloride 103
Carbon Dioxide 26
BUN 13
Creatinine 0.7
Glucose 100 H
Calcium 9.1
Vital Signs:
Vital Signs
Temp Pulse Resp BP Pulse Ox
98.1 F 74 18 131/59 95
01/15/24 11:55 01/15/24 13:30 01/15/24 11:55 01/15/24 13:30 01/15/24 11:56
Review of Systems
-
All other systems: Reviewed and negative
--- NOTE | 2024-01-15 19:31 | PTCARENOTE ---
Pt received post cardiac cath done via right radial artery. Radial band removed per protocol, no sign of bleeding or hematoma. Pt denies any chest discomfort. Telemetry shows sinus rhythm. Pt OOB independently.
--- NOTE | 2024-01-15 20:00 | PTCARENOTE ---
Assumed care. VSS, NSR. Right radial site CDI, tenderness to touch. Lights dimmed, call sears in reach
[2024-01-15] MEDS: TOPROL XL 25 MG PO (20:24)
[2024-01-16 04:48] VITALS: BP 114/52
[2024-01-16 05:06] LABS: Hematocrit 41.6 % (37.0-47.0); Hemoglobin 13.8 g/dL (12.0-16.0); Mean Corp Hgb Conc. 33.2 g/dL (33.0-37.0); Mean Corpuscular Hgb 31.7 pg (27.0-31.0); Mean Corpuscular Volume 95.6 fL (81.0-99.0); Mean Platelet Volume 9.9 fL (7.4-10.4); Platelet Count 235 10^3/uL (130-400); Red Blood Cell Count 4.35 10^6/uL (4.20-5.40); Red Cell Dist. Width 13.7 % (11.5-14.5); White Blood Cell Count 3.9 10^3/uL (4.8-10.8)
[2024-01-16 06:45] LABS: Blood Urea Nitrogen 12 mg/dl (7-17); Calcium 9.3 mg/dl (8.4-10.2); Carbon Dioxide 25 mmol/L (22-30); Chloride 106 mmol/L (98-107); Glucose 93 mg/dl (70-99); Potassium 4.3 mmol/L (3.5-5.1); Sodium 136 mmol/L (135-145); eGFR > 60.00
[2024-01-16 06:49] VITALS: BP 107/63
--- NOTE | 2024-01-16 07:09 | W.PN.HOSP.TC ---
Today's Communication/Plan
-
discharge
Assessment / Plan
Assessment / Plan
Physical exam:
General: Well Developed, Well Nourished and No Apparent Distress
HEENT: Normocephalic, Atraumatic and Moist Mucous Membranes
Respiratory: Clear to Auscultation; Negative Wheezes, Rales or Rhonchi
Cardiac: Regular Rhythm and S1/S2
GI: Soft, Nontender and Nondistended
Musculoskeletal: No Clubbing, No Cyanosis and No Edema
Neuro: Awake, Alert and Oriented
Psych: Calm
A/P:
Chest pain elevated troponin/ NSTEMI ruled out in favor of Takotsubo cardiomyopathy
-ECHO appreciated EF 45-50% stage I diastolic dysfunction apical hypokinesis
-cardiac cath results appreciated no obstructive CAD
-heparin drip completed
-cont aspirin, beta-blockers as per cardio
-Cardiology eval appreciated stable for discharge home today.
History of breast cancer:
-Status post chemo and radiation and mastectomy in the past
-Currently on remission and on anastrozole as outpatient
Depression anxiety:
-On Xanax as needed
CODE STATUS:
Full code
Medically stable for discharge home with outpatient follow up recommendations.
Total Time Preparing Discharge __50 minutes including examination of the patient, summary of the hospital stay, instructions for continuing care to all relevant caregivers; and preparation of discharge records, prescriptions, and referral
forms if necessary.
Anticipated Discharge: Today
Subjective/Interval History
-
Date of Service: January 16, 2024
Seen and examined at bedside in no acute distress. reports overall feeling well. Ambulating without issues. Eager to go home. present during evaluation.
Objective Data
-
Labs:
Laboratory Results
01/16/24 01/16/24 01/16/24
04:55 05:47 06:14
WBC 3.9 L
Hgb 13.8
Hct 41.6
Plt Count 235
Sodium Cancelled Cancelled 136
Potassium Cancelled Cancelled 4.3
Chloride Cancelled Cancelled 106
Carbon Dioxide Cancelled Cancelled 25
BUN Cancelled Cancelled 12
Creatinine Cancelled Cancelled 0.6
Glucose Cancelled Cancelled 93
Calcium Cancelled Cancelled 9.3
Vital Signs:
Vital Signs
Temp Pulse Resp BP Pulse Ox
98 F 58 14 114/52 98
01/16/24 06:47 01/16/24 06:47 01/16/24 06:47 01/16/24 04:48 01/16/24 06:47
I&O
01/15/24 01/16/24 01/17/24
06:59 06:59 06:59
Intake Total 780 / 780
Balance 780 / 780
[2024-01-16] MEDS: TOPROL XL 25 MG PO (08:33)
[2024-01-16] MEDS: ARIMIDEX 1 MG PO (08:33)
[2024-01-16] MEDS: ASPIR LOW (ENTERIC COATED) 81 MG PO (08:33)
--- NOTE | 2024-01-16 11:29 | W.PN.CARDCBS ---
Today's Communication / Plan
-
Discharge today
Impression / Plan
-
PCP; In [place]
Primary Chief Supply Chain Officer: None
Assessment:
Presentation with CP
Elevated troponin
Breast cancer
lumpectomy and radiation with resulting pneumonitis in 2009
recurrence in the other breast with 3 masses and 2 different types of cancer, treated with 'buck[place]' chemotherapy which includes Adriamycin, EF dropped and then recovered when therapy stopped, never treated with CM meds, 2021
Improved NICM felt to be secondary to chemotherapy with subsequent recovery in EF 2021
Anxiety
Elevated blood glucose
h/o COVID 11/2023
Echo 01/15/24: EF 45-50%, hypokinesis of the apical segments with preserved function of the basal and mid segments, Stage I diastolic dysfunction, mild to moderate MR
Chest x-ray 2 views: No active cardiopulmonary disease
[facility] 01/15/[address] Harrison: CORONARY FINDINGS: DOMINANCE: Left. LEFT MAIN: Normal. LEFT ANTERIOR DESCENDING: Normal. CIRCUMFLEX: Normal. RIGHT CORONARY ARTERY: Small nondominant
Plan:
Chest pain syndrome with initial troponin 0.194 with 2D echocardiogram noting apical wall motion abnormality status post left heart catheterization with normal coronary anatomy and no obstructive coronary artery disease
-Consistent with Takotsubo's cardiomyopathy. Echocardiogram yesterday with EF estimated 45-50% with hypokinesis of the apical. Mild to moderate MR and mild TR. Normal RV size and systolic function.
-No further chest pain complaints. No symptoms of heart failure. No cardiac arrhythmias on telemetry
-We reviewed presentation, testing, and diagnosis.
-Recommend low-salt cardiac healthy diet
-Discharge on Toprol-XL 12.5 mg daily and an aspirin
-She was provided discs of her left heart catheterization and echocardiogram as well as records to take with her back home to [place]
-Right radial site intact and she was provided instructions for post cath activity restrictions
-Okay for air travel home to [place] on Friday as planned
-LDL 95 -hold off on adding statin as patient prefers minimal medications and no obstructive coronary disease found at cardiac catheterization
-TSH normal.
-Instructed to see her family physician when she returns to [place]. Instructed to notify her oncologist about hospitalization. Instructed to establish care with cardiology in [place] for follow-up
-Stable for discharge home today
HPI: Patient came to [facility] today with chest pain episodes on Friday and Friday and cardiology is consulted for elevated Troponin. Patient resides in [place] and is visiting her father who is very ill with glioblastoma. She has a PMH of breast cancer
s/p B/L mastectomy and chemotherapy including Adriamycin, on anastrozole. She had NICM towards the end of her treatment in 2021 and was recommended CM meds, but EF improved on a follow up echo and meds were never restarted. Echo within the last year
showed a normal EF. Patient flew into [place] on Friday and in the evening she had an episode of chest pain, it was pain at rest and associated with emotional distress. The pain lasted an hour and resolved without specific intervention. Pain was between
her shoulders and to her left ACW. She had never had a pain like that before. She had another episode of pain that was identical during an emotional conversation with her brother yester morning. No recurrence of pain since Friday morning.
Patient then had an episode of abdominal pain and had an episode of syncope while seated and participating in a video conference call with her about a work issue. She awoke and felt like she had urinary incontinence, but no vomiting or fecal
incontinence. She has passed in the past as well, once with an IUD insertion and another time after colonoscopy. She came to [facility] today to get checked out, no new issues today. No leg pain or swelling. No SOB, tachypnea or tachycardia. No h/o DVT/PE
Progress Note - Chief Supply Chain Officer
Subjective
Date of Service: January 16, 2024
Seen and examined out of bed ambulating in room. present. Feels well without recurrent chest pain. No shortness of breath. Anxious for discharge.
Objective
Labs:
01/16/24 04:55
01/16/24 06:14
Labs
Hgb 13.8 g/dL (12.0-16.0) 01/16/24 04:55
Hct 41.6 % (37.0-47.0) 01/16/24 04:55
Plt Count 235 10^3/uL (130-400) 01/16/24 04:55
APTT Cancelled 01/15/24 11:30
Sodium 136 mmol/L (135-145) 01/16/24 06:14
Potassium 4.3 mmol/L (3.5-5.1) 01/16/24 06:14
BUN 12 mg/dl (7-17) 01/16/24 06:14
Creatinine 0.6 mg/dL (0.6-1.0) 01/16/24 06:14
Glucose 93 mg/dl (70-99) 01/16/24 06:14
Troponins
01/14/24 01/14/24 01/14/24
14:25 17:22 17:44
Troponin I 0.194 H* Cancelled 0.165 H*
01/14/24
22:32
Troponin I 0.130 H*
Vital Signs and I&O:
Vital Signs
Temp Pulse Resp BP Pulse Ox
98 F 56 14 107/63 98
01/16/24 06:47 01/16/24 07:00 01/16/24 06:47 01/16/24 06:49 01/16/24 08:29
Vital Signs
Temp Pulse Resp BP Pulse Ox
98 F 56 14 107/63 98
01/16/24 06:47 01/16/24 07:00 01/16/24 06:47 01/16/24 06:49 01/16/24 08:29
Intake & Output
01/14/24 01/15/24 01/16/24 01/17/24
06:59 06:59 06:59 06:59
Intake Total 780 / 780 240 / 240
Balance 780 / 780 240 / 240
Physical Exam
Physical Exam
GEN: NAD. AAOx3
HEENT: EOMI, MMM
LUNGS: CTA B/L, no wheezes or rales
CV: Reg, S1/S2, no murmur
ABD: soft, BS+, NT, ND
EXT: No clubbing, cyanosis, lesions or edema B/L. Right radial site with mild ecchymosis, intact.
NEURO: Gross non-focal
[2024-01-16 11:33] VITALS: BP 110/75
--- NOTE | 2024-01-16 12:32 | W.DCSUMMARY ---
Discharge Summary
Discharge Data
Date of Admission: 01/14/24
Date of Discharge: 01/16/24
-
Pending Results: No
Hospital Course
63F past medical history of breast cancer, and nonischemic cardiomyopathy with recovered EF who presented with episodic chest pain. Patient reported she had an episode of chest pain on prior Friday evening. She noted pain occurred at rest
described between her shoulders and left anterior chest wall. Morning prior presentation, she had an episode of identical chest pain. Both o f the episodes of chest pain were associated with emotional distress as her father was quite ill with
glioblastoma. Patient then had an episode of epigastric abdominal afternoon day prior which was associated with a syncopal episode while seated during a call with her while preparing for a client conference call. After the syncopal episode
she reported a chest discomfort that lasted the rest of the night. Morning patient felt lightheaded which prompted her to come to the emergency department for evaluation. Chest pain elevated troponin, NSTEMI was eventually ruled out in favor of
Takotsubo cardiomyopathy. ECHO appreciated EF 45-50% stage I diastolic dysfunction apical hypokinesis. Cardiac cath results appreciated no obstructive CAD. Empiric heparin drip was completed. Aspirin and beta-blockers were recommended as per
cardio. Originally from [place], medically stable, patient was discharged home with CD of her images, outpatient follow up recommendations, and new prescriptions.
Discharge Plan
-
Patient Disposition: Home (Routine Discharge)
Discharge Diagnosis/Procedures: Takutsubo Cardiomyopathy, cardiac cath
Condition: Good
Diet: Low Cholesterol and 2 Gram Sodium
Activity: As tolerated and No strenuous activity
Additional Activity: avoid strenuous/stressful activity for 1 week then advance as tolerated.
Driving Restrictions: No driving for 24 hours
Bathing Restrictions: None
Activity Restrictions/Additional Instructions:
Please follow up with your primary care provider in 1 week of discharge, Cardiology in 1-2 weeks of discharge.
For Taktsubo cardiomyopathy (also known as 'Stress Cardiomyopathy' or 'Broken Heart Syndrome') you've been prescribed aspirin and metoprolol as per cardio recommendations.
Please take medications as prescribed/recommended and follow up with your primary care provider and/or other healthcare provider involved in your care for refills and/or further adjustments to your medication regimen as necessary.
Instructions: Stress cardiomyopathy
Stand Alone Forms: DC Instructions- Cath/EP Lab
Referrals:
UNKNOWN - PT DOES,NOT KNOW [Family Provider] -
Prescriptions:
New
aspirin 81 mg Tablet,Delayed Release (Dr/Ec)
81 mg PO DAILY 30 Days Qty: 30 0RF
metoprolol succinate 25 mg Tablet Extended Release 24 Hr
12.5 mg PO DAILY 30 Days Qty: 15 0RF
Continued
anastrozole 1 mg Tablet
1 mg PO DAILY
Patient Comments:
no pharamcy or ecw records
alprazolam [Xanax] 0.5 mg Tablet
0.5 mg PO DAILYPRN PRN (Reason: anixety)
Patient Comments:
no pdmp records
Discharge Orders:
Discharge Patient (As Directed); Ordered 01/16/24
Ordered By: Paige Ramirez
Care Plan Goals
Care Plan Goals:
Problem: Readiness for enhanced knowledge related to diagnosis and treatment plan
Goal: Understand your diagnosis and treatment plan needs, including medications if applicable.
Instructions: Know your diagnosis, underlying causes and treatment plan options, including medications if applicable. Consult with your health care team to learn about your diagnosis and treatment plan, including medications if applicable.
Discharge Date and Time
Discharge Date/Time: 01/16/24 13:28
Print Language: RWANDAN
--- NOTE | 2024-01-16 13:25 | PTCARENOTE ---
Pt seen by Malissa and James. telemetry and IV device removed. Discharge instructions reviewed with pt adn her regarding medications and their possible side effects, activity and driving guidelines, reporting cares and concerns and
follow up for [place]. Excellent understanding verbalized. Pt escorted out via wheelchair and pt discharged to home.
== END 2024-01-16 13:28 | disposition home or self-care (01) | DRG 287 ==
LOC: IVU 19:28
PROVIDERS: Internal Medicine Interventional Cardiology; Nurse Practitioner; Physician Assistant Medical; Student in an Organized Health Care Education/Training Program; ADMITTING PHYSICIAN Hospitalist; ATTENDING PHYSICIAN Internal Medicine; CONSULT PHYSICIAN Internal Medicine Interventional Cardiology; EMERGENCY PHYSICIAN Emergency Medicine
PROC: 4A023N7 Measurement of Cardiac Sampling and Pressure, Left Heart, Percutaneous Approach (ICD-10-PCS; 2024-01-15)
PROC: B2111ZZ Fluoroscopy of Multiple Coronary Arteries using Low Osmolar Contrast (ICD-10-PCS; 2024-01-15)
DX: I42.8 Other cardiomyopathies (principal); Z87.891 Personal history of nicotine dependence
CPT/HCPCS: 71046; 80048; 80053; 80061; 83690; 83735; 84443; 84484; 85025; 85027; 85379; 85730; 93005; 93306; 93454; 96365; 96366; 99285; C1894; Q9967